=== PATIENT | male | born 1950 | race Two or more races ===

== ENCOUNTER 2021-03-16 14:54 | Inpatient (IN) | payer OTHER ==
[~2021-03-16] VITALS: Ht 177.8 cm; Wt 89.6 kg
[2021-03-16] MEDS ORDERED: ASPirin 81 mg TAB PO ONE (15:15)
[2021-03-16] MEDS ORDERED: SODIUM CHLORIDE 0.9% 1,000 ML IV ONE (15:15)
[2021-03-16 15:25] LABS: Basophils # (auto) 0.1 10 ^3/uL (0-0.2); Eosinophils # (auto) 0.1 10 ^3/uL (0-0.8); Eosinophils % (auto) 2.7 % (0.0-7.0); Hematocrit 38.6 % (41.0-53.0); Hemoglobin 13.4 g/dL (13.5-17.5); Lymphocytes # (auto) 0.6 10 ^3/uL (0.4-5.4); Lymphocytes % (auto) 12.3 % (10.0-50.0); Mean Corpuscular Hemoglobin 32.4 pg (28.0-32.0); Mean Corpuscular Hgb Conc. 34.7 g/dL (32.0-36.0); Mean Corpuscular Volume 93.3 fL (80.0-100.0); Monocytes # (auto) 0.5 10 ^3/uL (0-1.3); Monocytes % (auto) 10.3 % (0.0-12.0); Neutrophils # (auto) 3.9 10 ^3/uL (1.6-8.6); Neutrophils % (auto) 73.7 % (37.0-80.0); Nucleated Red Blood Cells % 0.1 %; Red Blood Cells 4.13 10^6/uL (4.5-5.90); Red Cell Distribution Width 13.8 % (11.8-14.3); White Blood Cell 5.2 10^3/uL (4.4-10.8)
[2021-03-16 15:48] LABS: Albumin 2.5 g/dL (3.4-5.0); Anion Gap 8 (5-15); Blood Urea Nitrogen 28 mg/dL (7-18); Calcium 7.1 mg/dL (8.5-10.1); Carbon Dioxide 19 mmol/L (21-32); Chloride 113 mmol/L (98-107); Glucose 82 mg/dL (74-106); Potassium 5.1 mmol/L (3.5-5.1); Sodium 140 mmol/L (136-145)
[2021-03-16 15:49] LABS: Alanine Aminotransferase 25 U/L (16-61); Aspartate Aminotransferase 24 U/L (15-37); BUN/Creatinine Ratio 13.8; GFR African American 42 mL/min; GFR Non-African American 35 mL/min
[2021-03-16 15:54] LABS: Alkaline Phosphatase 127 U/L (45-117); Bilirubin, Total 0.4 mg/dL (0.2-1.0); Total Protein 4.9 g/dL (6.4-8.2)
[2021-03-16] MEDS ORDERED: LACTATED RINGER'S 1,000 ML IV STA (17:26)
[2021-03-16] MEDS ORDERED: LACTATED RINGER'S 2,000 ML IV ONE (17:45)
[2021-03-16] MEDS ORDERED: NITROGLYCERIN 0.4 MG SL TAB SL ONE (18:00)
[2021-03-16 18:09] LABS: Urine WBC None Seen /hpf (0 - 3)
[2021-03-16 18:19] LABS: Urine Bacteria NONE SEEN /hpf (None Seen); Urine Blood Negative /uL (Negative)
[2021-03-16] MEDS ORDERED: MORPHINE SULFATE INJECTION 2 MG/ML SYRG IV PRN ×3 (19:00→20:00)
[2021-03-16] MEDS ORDERED: NITROGLYCERIN 0.4 MG SL TAB SL PRN ×2 (19:00→20:00)
[2021-03-16] MEDS ORDERED: hydrALAZINE HCL 20 MG/ML VL IV PRN (19:45)
[2021-03-16] MEDS ORDERED: ALUM & MAG HYDROX-SIMETH LIQ(MAALOX) 30 ML PO PRN (20:00)
[2021-03-16] MEDS ORDERED: ACETAMINOPHEN 325 MG TAB PO PRN (20:00)
[2021-03-16] MEDS ORDERED: ONDANSETRON HCL 4 MG/2 ML VIAL IV PRN (20:00)
[2021-03-16] MEDS ORDERED: HYDROcodone-ACET 5/325MG TAB PO PRN (20:00)
[2021-03-16] MEDS ORDERED: ALBUMIN 25% 100 ML IV ONE (20:15)
[2021-03-16] MEDS ORDERED: cefTRIAXone 1GM/50ML D5W 50 ML IV ONE (20:15)
[2021-03-16 20:31] LABS: Alcohol, Urine < 3.0 mg/dL (0-10); Amphetamine Screen, Urine NEGATIVE (NEGATIVE); Barbiturate Scree,Urine NEGATIVE (NEGATIVE); Benzodiazephine Screen, Urine NEGATIVE (NEGATIVE); Cannabinoid Screen, Urine NEGATIVE (NEGATIVE); Cocaine Screen, Urine NEGATIVE (NEGATIVE); Opiate Scree,Urine NEGATIVE (NEGATIVE); Phencyclidine Screen, Urine NEGATIVE (NEGATIVE)
[2021-03-16] MEDS ORDERED: metroNIDAZOLE 500MG/100ML 100 ML IV ONE (21:15)
[2021-03-16] MEDS: SODIUM CHLORIDE 0.9% 1,000 ML IV SCH (21:44)
[2021-03-16 22:00] VITALS: BP 102/72
[2021-03-16 22:20] VITALS: BP 102/72
[2021-03-16] MEDS: ATORVASTATIN 20 MG TAB PO SCH (23:01)
[2021-03-16] MEDS: FAMOTIDINE (10MG/ML) 2ML VL IV SCH (23:01)
[2021-03-16] MEDS: LORazepam 0.5 MG TAB PO PRN (23:08)
[2021-03-17] MEDS: SODIUM CHLORIDE 0.9% 1,000 ML IV SCH ×3 (04:31→19:45)
[2021-03-17] MEDS: ALBUMIN 25% 100 ML IV SCH ×3 (04:32→21:46)
[2021-03-17 05:00] VITALS: BP 112/66
[2021-03-17 05:59] LABS: Basophils # (auto) 0.1 10 ^3/uL (0-0.2); Basophils % (auto) 1.4 % (0.0-2.0); Eosinophils # (auto) 0.1 10 ^3/uL (0-0.8); Eosinophils % (auto) 3.2 % (0.0-7.0); Hematocrit 32.5 % (41.0-53.0); Hemoglobin 11.5 g/dL (13.5-17.5); Lymphocytes # (auto) 0.6 10 ^3/uL (0.4-5.4); Lymphocytes % (auto) 15.8 % (10.0-50.0); Mean Corpuscular Hemoglobin 33.1 pg (28.0-32.0); Mean Corpuscular Hgb Conc. 35.5 g/dL (32.0-36.0); Mean Corpuscular Volume 93.1 fL (80.0-100.0); Monocytes # (auto) 0.5 10 ^3/uL (0-1.3); Monocytes % (auto) 12.2 % (0.0-12.0); Neutrophils # (auto) 2.7 10 ^3/uL (1.6-8.6); Neutrophils % (auto) 67.4 % (37.0-80.0); Red Blood Cells 3.49 10^6/uL (4.5-5.90); Red Cell Distribution Width 12.9 % (11.8-14.3); White Blood Cell 4.1 10^3/uL (4.4-10.8)
[2021-03-17 06:04] LABS: INR 3.36 (0.9-1.15); Partial Thromboplastin Time 43.3 sec (23.0-31.2)
[2021-03-17 06:14] LABS: Albumin 2.9 g/dL (3.4-5.0); Calcium 6.9 mg/dL (8.5-10.1); Magnesium 1.7 mg/dL (1.6-2.6); Potassium 4.4 mmol/L (3.5-5.1)
[2021-03-17 06:21] LABS: BUN/Creatinine Ratio 14.7; Bilirubin, Total 0.5 mg/dL (0.2-1.0); Phosphorus 3.3 mg/dL (2.5-4.90); Total Protein 4.8 g/dL (6.4-8.2)
[2021-03-17] MEDS: metroNIDAZOLE 500MG/100ML 100 ML IV SCH ×3 (06:22→22:28)
[2021-03-17 09:00] VITALS: BP 105/63
[2021-03-17] MEDS: ENOXAPARIN SOD 30 MG/0.3 ML SYRINGE SC SCH (09:12)
[2021-03-17] MEDS: FAMOTIDINE (10MG/ML) 2ML VL IV SCH (09:12)
[2021-03-17] MEDS: CLOPIDOGREL BISULFATE 75 MG TAB PO SCH (09:12)
[2021-03-17] MEDS: METOPROLOL SUCCINATE XL 50 MG TAB PO SCH (09:13)
[2021-03-17] MEDS: ASPirin 81 mg TAB PO SCH (09:14)
[2021-03-17] MEDS: cefTRIAXone 1GM/50ML D5W 50 ML IV SCH (09:15)
[2021-03-17] MEDS ORDERED: CHOL20007 OR (10:14)
[2021-03-17] MEDS ORDERED: ATO40T PO (10:14)
[2021-03-17] MEDS ORDERED: LOSA-39 PO (10:14)
[2021-03-17] MEDS ORDERED: METO25TA5 PO (10:14)
[2021-03-17] MEDS ORDERED: HYDR-4296 PO (10:14)
[2021-03-17] MEDS ORDERED: ASPI-543 PO (10:16)
[2021-03-17] MEDS ORDERED: CLOP75TA70 PO (10:16)
[2021-03-17] MEDS ORDERED: AMLO-489 PO (10:16)
[2021-03-17 12:39] VITALS: BP 118/73
[2021-03-17 16:59] VITALS: BP 116/72
[2021-03-17 22:00] VITALS: BP 123/71
[2021-03-17] MEDS: ATORVASTATIN 20 MG TAB PO SCH (22:27)
[2021-03-17] MEDS: LORazepam 0.5 MG TAB PO PRN (22:28)
[2021-03-18] MEDS: SODIUM CHLORIDE 0.9% 1,000 ML IV SCH ×3 (03:45→18:44)
[2021-03-18 05:00] VITALS: BP 115/70
[2021-03-18] MEDS: metroNIDAZOLE 500MG/100ML 100 ML IV SCH ×3 (06:58→22:09)
[2021-03-18 08:00] VITALS: BP 112/69
[2021-03-18] MEDS: cefTRIAXone 1GM/50ML D5W 50 ML IV SCH (08:55)
[2021-03-18 09:00] VITALS: BP 112/69
[2021-03-18] MEDS: CLOPIDOGREL BISULFATE 75 MG TAB PO SCH (10:28)
[2021-03-18] MEDS: FAMOTIDINE (10MG/ML) 2ML VL IV SCH (10:28)
[2021-03-18] MEDS: ASPirin 81 mg TAB PO SCH (10:28)
[2021-03-18] MEDS: METOPROLOL SUCCINATE XL 50 MG TAB PO SCH (10:29)
[2021-03-18] MEDS: ENOXAPARIN SOD 30 MG/0.3 ML SYRINGE SC SCH (10:29)
[2021-03-18 13:00] VITALS: BP_SYST 132; BP_SYST 137; BP_DIAS 57; BP_DIAS 71
[2021-03-18 16:31] VITALS: BP 130/74
[2021-03-18 21:52] VITALS: BP 134/75
[2021-03-18] MEDS: LORazepam 0.5 MG TAB PO PRN (22:09)
[2021-03-18] MEDS: ATORVASTATIN 20 MG TAB PO SCH (22:09)
[2021-03-19] MEDS: SODIUM CHLORIDE 0.9% 1,000 ML IV SCH ×2 (03:45→15:21)
[2021-03-19 05:45] VITALS: BP 133/76
[2021-03-19] MEDS: metroNIDAZOLE 500MG/100ML 100 ML IV SCH (05:52)
[2021-03-19] MEDS ORDERED: ADENOSINE 69 MG in GIVE UN-DILUTED 0 ML IV STA (08:29)
[2021-03-19 09:00] VITALS: BP 134/76
[2021-03-19] MEDS ORDERED: GASTROGRAFIN 120 ML SOL ONE (10:58)
[2021-03-19 13:00] VITALS: BP 139/83
[2021-03-19] MEDS: FAMOTIDINE (10MG/ML) 2ML VL IV SCH (13:20)
[2021-03-19] MEDS: CLOPIDOGREL BISULFATE 75 MG TAB PO SCH (13:21)
[2021-03-19] MEDS: ASPirin 81 mg TAB PO SCH (13:21)
[2021-03-19] MEDS: ENOXAPARIN SOD 30 MG/0.3 ML SYRINGE SC SCH (13:21)
[2021-03-19] MEDS: METOPROLOL SUCCINATE XL 50 MG TAB PO SCH (13:25)
[2021-03-19 17:17] VITALS: BP 140/88
[2021-03-19] MEDS: LORazepam 0.5 MG TAB PO PRN (22:01)
[2021-03-19] MEDS: ATORVASTATIN 20 MG TAB PO SCH (22:01)
[2021-03-20] VITALS (7 sets, daily range): BP systolic 133–161; BP diastolic 72–90
[2021-03-20] MEDS: SODIUM CHLORIDE 0.9% 1,000 ML IV SCH ×2 (02:20→21:40)
[2021-03-20 05:08] LABS: Basophils # (auto) 0 10 ^3/uL (0-0.2); Basophils % (auto) 1.3 % (0.0-2.0); Eosinophils # (auto) 0.2 10 ^3/uL (0-0.8); Eosinophils % (auto) 5.5 % (0.0-7.0); Hemoglobin 12.6 g/dL (13.5-17.5); Lymphocytes # (auto) 0.7 10 ^3/uL (0.4-5.4); Lymphocytes % (auto) 19.4 % (10.0-50.0); Mean Corpuscular Hemoglobin 32.2 pg (28.0-32.0); Mean Corpuscular Hgb Conc. 34.2 g/dL (32.0-36.0); Mean Corpuscular Volume 94.4 fL (80.0-100.0); Monocytes # (auto) 0.4 10 ^3/uL (0-1.3); Monocytes % (auto) 10.1 % (0.0-12.0); Neutrophils # (auto) 2.3 10 ^3/uL (1.6-8.6); Neutrophils % (auto) 63.7 % (37.0-80.0); Red Blood Cells 3.92 10^6/uL (4.5-5.90); Red Cell Distribution Width 13.9 % (11.8-14.3); White Blood Cell 3.5 10^3/uL (4.4-10.8)
[2021-03-20 05:21] LABS: INR 1.64 (0.9-1.15)
[2021-03-20 05:25] LABS: Calcium 7.8 mg/dL (8.5-10.1); Magnesium 1.9 mg/dL (1.6-2.6); Potassium 3.9 mmol/L (3.5-5.1)
[2021-03-20 05:30] LABS: BUN/Creatinine Ratio 7.8
[2021-03-20] MEDS ORDERED: ADENOSINE 69 MG in GIVE UN-DILUTED 0 ML IV STA (11:54)
[2021-03-20] MEDS ORDERED: MAGNESIUM SULFATE 1GM/100ML 100 ML IV ONE (14:15)
[2021-03-20] MEDS: CLOPIDOGREL BISULFATE 75 MG TAB PO SCH (15:18)
[2021-03-20] MEDS: ENOXAPARIN SOD 30 MG/0.3 ML SYRINGE SC SCH (15:18)
[2021-03-20] MEDS: FAMOTIDINE (10MG/ML) 2ML VL IV SCH (15:18)
[2021-03-20] MEDS: ASPirin 81 mg TAB PO SCH (15:18)
[2021-03-20] MEDS ORDERED: SODIUM CHLORIDE 0.9% 1,000 ML IV ONE (17:30)
[2021-03-20] MEDS: ACETYLCYSTEINE ORAL for CIN 20%(200MG/ML) 4ML PO SCH (21:39)
[2021-03-20] MEDS: ATORVASTATIN 20 MG TAB PO SCH (21:39)
[2021-03-20] MEDS: LORazepam 0.5 MG TAB PO PRN (21:41)
[2021-03-21 05:00] VITALS: BP 146/76
[2021-03-21] MEDS: SODIUM CHLORIDE 0.9% 1,000 ML IV SCH (06:20)
[2021-03-21 06:26] LABS: Basophils # (auto) 0 10 ^3/uL (0-0.2); Basophils % (auto) 1.2 % (0.0-2.0); Eosinophils # (auto) 0.2 10 ^3/uL (0-0.8); Eosinophils % (auto) 4.6 % (0.0-7.0); Hematocrit 32.6 % (41.0-53.0); Hemoglobin 11.5 g/dL (13.5-17.5); Lymphocytes # (auto) 0.7 10 ^3/uL (0.4-5.4); Mean Corpuscular Hgb Conc. 35.3 g/dL (32.0-36.0); Mean Corpuscular Volume 93.5 fL (80.0-100.0); Monocytes # (auto) 0.5 10 ^3/uL (0-1.3); Monocytes % (auto) 11.3 % (0.0-12.0); Neutrophils # (auto) 2.7 10 ^3/uL (1.6-8.6); Neutrophils % (auto) 65.9 % (37.0-80.0); Nucleated Red Blood Cells % 0.1 %; Red Blood Cells 3.49 10^6/uL (4.5-5.90); Red Cell Distribution Width 13.8 % (11.8-14.3)
[2021-03-21 06:28] LABS: INR 1.97 (0.9-1.15); Partial Thromboplastin Time 34.7 sec (23.0-31.2)
[2021-03-21 06:37] LABS: Calcium 7.5 mg/dL (8.5-10.1); Potassium 3.9 mmol/L (3.5-5.1)
[2021-03-21 06:39] LABS: BUN/Creatinine Ratio 8.4
[2021-03-21 09:00] VITALS: BP 138/89
[2021-03-21] MEDS: FAMOTIDINE (10MG/ML) 2ML VL IV SCH (10:00)
[2021-03-21] MEDS: ACETYLCYSTEINE ORAL for CIN 20%(200MG/ML) 4ML PO SCH ×2 (10:00→21:21)
[2021-03-21] MEDS: ENOXAPARIN SOD 30 MG/0.3 ML SYRINGE SC SCH (10:00)
[2021-03-21] MEDS: CLOPIDOGREL BISULFATE 75 MG TAB PO SCH (10:16)
[2021-03-21] MEDS: ASPirin 81 mg TAB PO SCH (10:16)
[2021-03-21] MEDS ORDERED: LIDOCAINE 2%HCL (LOCAL ANESTH.) INJ 20ML MDV ONE (12:52)
[2021-03-21] MEDS ORDERED: IODIXANOL 320MG/ML 100ML BTL IV ONE ×3 (12:53→14:06)
[2021-03-21] MEDS ORDERED: MIDAZOLAM HCL 2MG/2ML 2ml VIAL (1mg/ml) ONE ×2 (13:35→13:48)
[2021-03-21] MEDS ORDERED: SODIUM CHL 0.9% 0 ML ONE (13:35)
[2021-03-21] MEDS ORDERED: fentaNYL CITRATE 100 MCG/2 ML VL ONE (13:35)
[2021-03-21] MEDS ORDERED: ANGIOMAX 250 MG VIAL IV ONE (13:35)
[2021-03-21] MEDS ORDERED: HEPARIN SODIUM (PORCINE) 5000 UNITS/ML 1ML VIAL ONE (13:36)
[2021-03-21] MEDS ORDERED: VERAPAMIL 2.5MG/ML INJ 2ML VIAL IV ONE (13:36)
[2021-03-21 17:00] VITALS: BP 154/86
[2021-03-21] MEDS: LORazepam 0.5 MG TAB PO PRN (21:18)
[2021-03-21] MEDS: METOPROLOL TARTRATE 25 MG TAB PO SCH (21:18)
[2021-03-21] MEDS: ATORVASTATIN 20 MG TAB PO SCH (21:22)
[2021-03-21 21:52] VITALS: BP 143/91
[2021-03-22] MEDS: SODIUM CHLORIDE 0.9% 1,000 ML IV SCH (02:45)
[2021-03-22 05:00] VITALS: BP 152/71
[2021-03-22 06:16] LABS: Basophils # (auto) 0.1 10 ^3/uL (0-0.2); Basophils % (auto) 1.5 % (0.0-2.0); Eosinophils # (auto) 0.2 10 ^3/uL (0-0.8); Eosinophils % (auto) 5.2 % (0.0-7.0); Hematocrit 34.3 % (41.0-53.0); Hemoglobin 12.3 g/dL (13.5-17.5); Lymphocytes # (auto) 0.6 10 ^3/uL (0.4-5.4); Lymphocytes % (auto) 15.4 % (10.0-50.0); Mean Corpuscular Hemoglobin 33.1 pg (28.0-32.0); Mean Corpuscular Hgb Conc. 35.7 g/dL (32.0-36.0); Mean Corpuscular Volume 92.7 fL (80.0-100.0); Monocytes # (auto) 0.4 10 ^3/uL (0-1.3); Monocytes % (auto) 10.3 % (0.0-12.0); Neutrophils # (auto) 2.8 10 ^3/uL (1.6-8.6); Neutrophils % (auto) 67.6 % (37.0-80.0); Red Cell Distribution Width 13.5 % (11.8-14.3); White Blood Cell 4.2 10^3/uL (4.4-10.8)
[2021-03-22 06:19] LABS: INR 2.28 (0.9-1.15)
[2021-03-22 06:32] LABS: Calcium 7.5 mg/dL (8.5-10.1); Potassium 3.9 mmol/L (3.5-5.1)
[2021-03-22 06:36] LABS: BUN/Creatinine Ratio 6.4; Magnesium 1.8 mg/dL (1.6-2.6)
[2021-03-22 08:30] VITALS: BP 138/86
[2021-03-22] MEDS: FAMOTIDINE (10MG/ML) 2ML VL IV SCH (09:14)
[2021-03-22] MEDS: CLOPIDOGREL BISULFATE 75 MG TAB PO SCH (09:14)
[2021-03-22] MEDS: ASPirin 81 mg TAB PO SCH (09:14)
[2021-03-22] MEDS: METOPROLOL TARTRATE 25 MG TAB PO SCH (09:15)
[2021-03-22] MEDS ORDERED: ENOXAPARIN SOD 40 MG/0.4 ML SYRINGE SC SCH (10:00)
[2021-03-22] MEDS ORDERED: PANT40TA2 PO (11:37)
[2021-03-22 12:30] VITALS: BP 142/90
[2021-03-22 14:28] VITALS: BP 138/86
== END 2021-03-22 15:35 | disposition home health service (06) | DRG 286 ==
LOC: EDBD 14:54 → ER 14:54 → TELE-WESTW 19:54
PROVIDERS: ADMIT Hospitalist; ATTEND Internal Medicine
PROC: B215YZZ Fluoroscopy of Left Heart using Other Contrast (ICD-10-PCS; principal; 2021-03-21)
PROC: 4A023N7 Measurement of Cardiac Sampling and Pressure, Left Heart, Percutaneous Approach (ICD-10-PCS; 2021-03-21)
PROC: B211YZZ Fluoroscopy of Multiple Coronary Arteries using Other Contrast (ICD-10-PCS; 2021-03-21)
DX: I25.10 Atherosclerotic heart disease of native coronary artery without angina pectoris (principal); I50.33 Acute on chronic diastolic (congestive) heart failure; N17.0 Acute kidney failure with tubular necrosis; I13.0 Hypertensive heart and chronic kidney disease with heart failure and stage 1 through stage 4 chronic kidney disease, or unspecified chronic kidney disease; I24.9 Acute ischemic heart disease, unspecified; D68.69 Other thrombophilia; D68.4 Acquired coagulation factor deficiency; K50.90 Crohn's disease, unspecified, without complications; I95.2 Hypotension due to drugs; E78.5 Hyperlipidemia, unspecified; N18.30 Chronic kidney disease, stage 3 unspecified; E55.9 Vitamin D deficiency, unspecified; K90.0 Celiac disease; Z20.822 Contact with and (suspected) exposure to COVID-19; E86.0 Dehydration; N18.31 Chronic kidney disease, stage 3a; Z79.02 Long term (current) use of antithrombotics/antiplatelets; Z85.828 Personal history of other malignant neoplasm of skin; Z82.49 Family history of ischemic heart disease and other diseases of the circulatory system; Z83.3 Family history of diabetes mellitus; Z95.5 Presence of coronary angioplasty implant and graft; Z88.8 Allergy status to other drugs, medicaments and biological substances; T46.7X5A Adverse effect of peripheral vasodilators, initial encounter; I25.2 Old myocardial infarction
CPT/HCPCS: 36415; 71045; 74250; 78452; 80048; 80053; 80061; 80307; 81001; 82306; 82728; 83036; 83615; 83735; 83880; 83970; 84100; 84443; 84484; 84550; 85025; 85049; 85610; 85730; 86850; 86900; 86901; 87040; 87086; 87426; 93005; 93017; 93306; 93458; 96361; 96365; 99152; 99153; C1887; G0378; J0153; J0696; J2250; J3490; P9047; Q9967